=== PATIENT | female | born 1975 | race Two or more races ===

== ENCOUNTER 2016-07-28 19:26 | Emergency (ER) | payer SELFPAY ==
[~2016-07-28] VITALS: Ht 170.2 cm; Wt 90.7 kg
[2016-07-28] MEDS ORDERED: ACETAMINOPHEN ES 500 MG TABLET ONE (19:49)
[2016-07-28] MEDS ORDERED: IBUPROFEN 400 MG TABLET ONE (19:49)
[2016-07-28] MEDS ORDERED: DEXAMETHASONE SOD PHOSPHATE 10 MG/ML VIAL ONE (19:49)
[2016-07-28] MEDS ORDERED: DEXAMETHASONE SOD PHOSPHATE 10 MG/ML VIAL IM ONE (20:00)
[2016-07-28] MEDS ORDERED: IBUPROFEN 400 MG TABLET PO ONE (20:00)
[2016-07-28] MEDS ORDERED: ACETAMINOPHEN ES 500 MG TABLET PO ONE (20:00)
[2016-07-28 20:35] VITALS: BP 136/94
== END 2016-07-28 20:36 | disposition home or self-care (01) ==
LOC: ER 19:29
DX: S16.1XXA Strain of muscle, fascia and tendon at neck level, initial encounter (principal); F17.210 Nicotine dependence, cigarettes, uncomplicated; V43.52XA Car driver injured in collision with other type car in traffic accident, initial encounter; Y93.89 Activity, other specified; Y92.488 Other paved roadways as the place of occurrence of the external cause; Y99.8 Other external cause status
CPT/HCPCS: 96372; 99283; A4606; J1100; Z7610